=== PATIENT | male | born 1995 | race Caucasian/White ===

== ENCOUNTER 2017-06-10 14:36 | Emergency (ER) | payer BC ==
[~2017-06-10] VITALS: Ht 172.7 cm; Wt 72.6 kg
[~2017-06-10 14:36] MED LIST: IBUPROFEN 800800 M1 PO; NORCO 5-325 TA1 EACH PO
[2017-06-10 15:26] LABS: URINE BILIRUBIN NEGATIVE (Negative); URINE BLOOD 3+ (Negative); URINE CLARITY CLEAR; URINE COLOR YELLOW; URINE GLUCOSE-RANDOM NEGATIVE (Negative); URINE KETONES NEGATIVE (Negative); URINE LEUKOCYTES-REFLEX NEGATIVE (Negative); URINE NITRITE-REFLEX NEGATIVE (Negative); URINE PROTEIN TRACE (Negative)
[2017-06-10 15:43] LABS: MUCUS 0-3 Light strn/LPF (None Seen); SQUAMOUS 4-10 Moderate /LPF (0-3)
[2017-06-10 15:44] LABS: CASTS None Seen /LPF (None Seen); CRYSTALS None Seen /LPF (None Seen); URINE RBC >20 Many /HPF (0-2); URINE WBC-REFLEX 0-5 Rare /HPF (0-5)
[2017-06-10 15:45] LABS: BACTERIA-REFLEX None Seen /HPF (None Seen)
[2017-06-10] MEDS ORDERED: NORCO 5-325 TA1 EAC1 PO (15:47)
[2017-06-10] MEDS ORDERED: FLOMAX0.4 MG PO (15:47)
[2017-06-10] MEDS ORDERED: ZOFRAN4 MG PO (15:47)
[2017-06-10 16:00] VITALS: BP 122/77
== END 2017-06-10 16:01 | disposition home or self-care (01) ==
LOC: M.ERS 14:36
PROVIDERS: Physician Assistant
DX: N20.1 Calculus of ureter (principal)

== ENCOUNTER 2017-06-13 16:18 | Inpatient (IN) | payer BC ==
[~2017-06-13] VITALS: Ht 172.7 cm; Wt 78.9 kg
[~2017-06-13 16:18] MED LIST changes: +FLOMAX0.4 MG PO; +NORCO 5-325 TA1 EAC1 PO; +ZOFRAN4 MG PO
[2017-06-13 16:24] VITALS: BP 131/76
[2017-06-13 17:02] LABS: HEMATOCRIT 42.6 % (42.0-52.0); HEMOGLOBIN 14.7 gm/dL (14.0-18.0); MCH 30.5 pg (26.0-34.0); MCHC 34.5 g/dL (28.0-37.0); MCV 88.6 fL (80.0-100.0); MPV 8.2 fl. (7.2-11.1); NUCLEATED RBCS 0 /100WBC; PLATELET COUNT* 165 thou/uL (150-400); RBC 4.81 mil/uL (4.50-6.00); RDW-CV 12.5 % (10.5-14.5); WBC 12.1 thou/uL (4.0-11.0)
[2017-06-13 17:04] LABS: URINE BILIRUBIN NEGATIVE (Negative); URINE BLOOD 1+ (Negative); URINE CLARITY CLEAR; URINE COLOR YELLOW; URINE GLUCOSE-RANDOM NEGATIVE (Negative); URINE KETONES NEGATIVE (Negative); URINE LEUKOCYTES-REFLEX NEGATIVE (Negative); URINE NITRITE-REFLEX NEGATIVE (Negative); URINE PROTEIN NEGATIVE (Negative); URINE UROBILINOGEN 0.2 E.U./dl (0.2-1.0)
[2017-06-13 17:14] LABS: BACTERIA-REFLEX 1-9 Few /HPF (None Seen); CASTS None Seen /LPF (None Seen); CRYSTALS None Seen /LPF (None Seen); MUCUS 0-3 Light strn/LPF (None Seen); SQUAMOUS 0-3 Few /LPF (0-3); URINE RBC 0-2 Rare /HPF (0-2); URINE WBC-REFLEX 0-5 Rare /HPF (0-5)
[2017-06-13 17:37] LABS: ABSOLUTE LYMPHOCYTES 1.1 thou/uL (0.8-5.3); ABSOLUTE MONOCYTES 0.7 thou/uL (0.0-1.2); ABSOLUTE NEUTROPHILS 10.3 thou/uL (1.6-8.1); ATYPICAL LYMPHS 4 %
[2017-06-13 17:38] LABS: PLATELET ESTIMATE ADEQUATE
[2017-06-13 18:16] LABS: ALBUMIN 4.1 g/dL (3.4-5.0); CALCIUM 9.1 mg/dL (8.5-10.1); CREATININE 1.2 mg/dL (0.6-1.3); POTASSIUM 3.6 mmol/L (3.5-5.1); TOTAL BILIRUBIN 1.2 mg/dL (<0.1-1.0); TOTAL PROTEIN 7.1 g/dL (6.4-8.2)
[2017-06-13 19:56] VITALS: BP 118/76
[2017-06-13 20:00] VITALS: BP 120/79
[2017-06-14 07:15] VITALS: BP 124/73
[2017-06-14 16:00] VITALS: BP 132/58
[2017-06-14 21:10] VITALS: BP 129/92; BP 136/92
[2017-06-15] VITALS: BP 129/92
[2017-06-15 04:19] LABS: HEMATOCRIT 39.5 % (42.0-52.0); HEMOGLOBIN 13.2 gm/dL (14.0-18.0); MCH 30.1 pg (26.0-34.0); MCHC 33.5 g/dL (28.0-37.0); MCV 89.9 fL (80.0-100.0); MPV 8.5 fl. (7.2-11.1); RBC 4.39 mil/uL (4.50-6.00); RDW-CV 12.3 % (10.5-14.5); WBC 5.2 thou/uL (4.0-11.0)
[2017-06-15 04:43] LABS: CALCIUM 8.5 mg/dL (8.5-10.1); MAGNESIUM 1.5 mg/dL (1.8-2.4); POTASSIUM 3.7 mmol/L (3.5-5.1)
[2017-06-15 08:23] VITALS: BP 116/68
[2017-06-15 11:25] VITALS: BP 116/68
== END 2017-06-15 12:04 | disposition home or self-care (01) | DRG 694 ==
LOC: M.ERS 16:18 → M.ORTHSURG 18:55 → M.TBA-ER 18:55 → M.ORTHSURG 19:27
PROVIDERS: Internal Medicine; Nurse Practitioner Family; ADMIT Internal Medicine
DX: N13.2 Hydronephrosis with renal and ureteral calculous obstruction (principal); D72.829 Elevated white blood cell count, unspecified; F17.210 Nicotine dependence, cigarettes, uncomplicated; Z79.899 Other long term (current) drug therapy; Z87.442 Personal history of urinary calculi